=== PATIENT | male | born 1980 | race Caucasian/White ===

== ENCOUNTER 2018-09-27 20:08 | Emergency (ER) | payer MEDICAID, SELFPAY ==
[2018-09-27 20:10] VITALS: BP 129/87; PULSE 96; RESP 16; TEMP 37.1; O2SAT 100; BMI 23.6
--- NOTE | 2018-09-27 20:59 | ED.VISSUMM ---
- ER Visit Summary Date of Service: 09/27/18 Chief Complaint: Dizzy History of Present Illness: The patient is a 38 M who is had viral gastroenteritis symptoms for the past 6 days. He has been seen in urgent care a couple times. He took his first dose of Zofran last evening for some mild nausea. He states that about after 5 minutes he felt like he was on a carnival ride with everything moving and spinning. As the medication wore off today his symptoms resolved. Patient apparently went to urgent care today for a work note was sent to the emergency room. Physical Examination: Vital signs unremarkable. Patient's lying in bed no acute distress. Head neck examination reveals dry mucous membranes. TMs are clear bilaterally. Heart is regular rate and rhythm. Lung sounds are clear. Abdomen is soft and nontender. He has active bowel sounds throughout. Test Results: [] Emergency Department Course and Treatment: At this point patient's viral gastritis symptoms seem to be improving. It sounds like he had a vertigo reaction to Zofran that he took. Now that the medication is worn off his symptoms have completely resolved. Patient has been advised to stop taking Zofran. A work note is provided for today. Treatment Plan: [] Disposition: Discharge Impression: Medication side effect, resolved This note was generated with [email or web address] dictation software. It may contain incorrect words, spelling, and punctuation that were not noted in review of the chart prior to signing ED Disposition - Plan for ED Patient: Referrals: NOT,DEFINED [Primary Care Provider] -
--- NOTE | 2018-09-27 21:01 | ED.DEP ---
ED Disposition - Plan for ED Patient: Disposition: Home or Assisted Living Instructions: ED Drug React Allergic Referrals: Romel Grady MD [STAFF PHYSICIAN] - As Needed
== END 2018-09-27 21:11 | disposition home or self-care (01) ==
PROVIDERS: Emergency Provider Emergency Medicine
DX: R42 Dizziness and giddiness (principal); T45.0X5A Adverse effect of antiallergic and antiemetic drugs, initial encounter; Y92.9 Unspecified place or not applicable; A08.4 Viral intestinal infection, unspecified; Z72.0 Tobacco use
CPT/HCPCS: 99282

== ENCOUNTER 2019-05-02 22:45 | Emergency (ER) | payer MEDICAID, SELFPAY ==
[2018-12-25 15:15] VITALS: BMI 23.6
[2019-05-02 22:46] VITALS: BP 137/86; PULSE 79; RESP 14; TEMP 36.8; O2SAT 99; BMI 26.3
--- NOTE | 2019-05-02 23:38 | ED.DCSUM_ITS ---
- ER Visit Summary Date of Service: 05/02/19 Chief Complaint: Sick History of Present Illness: The patient is a 39 M who has been sick for several days. His family members have similar symptoms. He has been having fevers, dizziness, headache, nausea. He went to urgent care 2 days ago for his symptoms. He was having an earache at that time. He was prescribed antibiotics. He stopped taking them because they upset his stomach. He continues to have some nausea but no other GI symptoms. He continues to have fevers but is not taking Tylenol or Motrin because of the nausea. He has a headache and feels lightheaded. He attributes this to exhaustion. Physical Examination: Afebrile and vital signs unremarkable. Patient alert and oriented. No acute distress. HEENT exam unremarkable. Neck shows good range of motion, nontender. Heart regular rate and rhythm. Lungs clear in all hall. Skin appears unremarkable. Test Results: None indicated Emergency Department Course and Treatment: Patient has symptoms of an upper respiratory infection. His exam is reassuring. His family members have similar symptoms that also sound viral. Patient will need help with symptom control. He was treated with Zofran and Tylenol. He will be given a prescription for Zofran. Stay hydrated. Use Motrin and/or Tylenol as needed for fevers. Return for any new or worsening issues. Treatment Plan: As above Disposition: Discharge Impression: 1. Upper respiratory infection This note was generated with [employer] dictation software. It may contain incorrect words, spelling, and punctuation that were not noted in review of the chart prior to signing ED Disposition - Plan for ED Patient: Referrals: Care Physician,No Primary [Primary Care Provider] -
--- NOTE | 2019-05-02 23:40 | ED.DEP ---
ED Disposition - Plan for ED Patient: Instructions: BRONCHITIS, No Antibiotic (Adult) Prescriptions: Ondansetron [Zofran Odt] 4 mg PO Q8H PRN PRN #10 tab PRN Reason: Nausea Prescription Printed Referrals: Karmen Anne [NON-STAFF] -
[2019-05-02] MEDS: Ondansetron ODT 4 MG Tablet PO (23:45)
[2019-05-02] MEDS: Acetaminophen 500 MG Tablet 1000 MG PO (23:45)
[2019-05-02 23:58] VITALS: BP 130/60; PULSE 71; RESP 16; O2SAT 96
== END 2019-05-02 23:59 | disposition home or self-care (01) ==
LOC: ED 23:46
PROVIDERS: Emergency Provider Emergency Medicine; Referring Provider Nurse Practitioner Family
DX: J06.9 Acute upper respiratory infection, unspecified (principal); K21.9 Gastro-esophageal reflux disease without esophagitis; Z72.0 Tobacco use
CPT/HCPCS: 99283

== ENCOUNTER → 2020-02-08 | Outpatient (CLI) | payer MEDICAID, SELFPAY ==
--- NOTE | 2020-02-08 15:43 | RAD_ITS ---
STUDY: X-RAY - LUMBAR SPINE REASON FOR EXAM: Male, 39 years old. LBP, HIP PAIN TECHNIQUE: 3 view(s) of the lumbar spine were obtained. COMPARISON: None FINDINGS: Normal lumbar lordosis. There is no substantial scoliosis. There is a normal alignment of the vertebrae. Normal vertebral bodies and endplates. Normal disc space heights. There is no demonstrated fracture. There is no demonstrated spondylolysis of the pars interarticulares. The soft tissue structures are unremarkable. RAD/Lumbar Spine 2 or 3 Views IMPRESSION: Normal x-ray examination of the lumbar spine. Electronically Signed: Dani Banda MD at 16:07 EDT , Service support ,
--- NOTE | 2020-02-08 15:43 | RAD_ITS ---
STUDY: X-RAY - PELVIS AND BILATERAL HIPS REASON FOR EXAM: Male, 39 years old. BILATERAL HIP PAIN TECHNIQUE: AP view of the pelvis.? 2 views of the right hip, and 2 views of the left hip were obtained. COMPARISON: None. FINDINGS: There is a non-specific bowel gas pattern. Normal visualized soft tissue structures. Normal bilateral iliac wings, sacroiliac joints and visualized sacrum. Normal bilateral superior and inferior pubic rami. Normal pubic symphysis. Normal bilateral ischial tuberosities. Normal visualized right femoral head. Normal right acetabulum. Normal right hip joint. Normal visualized left femoral head. Normal left acetabulum. Normal left hip joint. RAD/Hips B/L min 2 views w/ Pelvis IMPRESSION: Normal x-ray examination of the pelvis and bilateral hips. Electronically Signed: Dani Banda MD at 16:08 EDT , Service support ,
== END | disposition home or self-care (01) ==
LOC: HPRAD 15:39
PROVIDERS: Referring Provider Anesthesiology Pain Medicine; Visit Provider Anesthesiology Pain Medicine
DX: M54.5 Low back pain (principal); M25.551 Pain in right hip; M25.552 Pain in left hip
CPT/HCPCS: 72100; 73521

== ENCOUNTER 2021-02-25 16:44 | Emergency (ER) | payer MEDICAID, SELFPAY ==
[2021-02-25 16:45] VITALS: BP 134/92; PULSE 74; RESP 16; TEMP 36.6; O2SAT 100; BMI 27.2
--- NOTE | 2021-02-25 16:55 | EX.ED.DYSGE1 ---
HPI History of Present Illness Chief Complaint: Other, Pain/Inj Informant: patient Onset/Context/Timing Onset: Days (3) Context: Gradual Onset Timing: Continuous Quality: sore swollen area Location: base of R neck Current Severity: Moderate Maximum Severity: Moderate Worsened by: palpation Relieved by: nothing Associated Symptoms Associated Symptoms: draining pus Narrative Narrative: Patient is concerned that he has a brown recluse spider bite. He never saw a spider, but states he was working outdoors, trimming branches from a tree and he started having discomfort, it was gradual, it later became worse and developed into what appears to be an abscess. He states he had a brown recluse spider bite in the past. He denies any systemic symptoms. [facility] Medical History (Updated 02/25/21 @ 17:[address] Edwin Pérez MD) Acid reflux Depression with anxiety History of back problems Home Medications sulfamethoxazole-trimethoprim 1 tab PO BID #20 tablet 02/25/21 [Rx Last Taken Unknown] Allergy/AdvReac Type Severity Reaction Status Date / Time No Known Allergies Allergy Verified 02/25/21 16:48 Family History (System 01/29/20 @ 14:14 by Nathaniel Silverio) Aunt Breast cancer Surgical History (System 01/29/20 @ 14:14 by Nathaniel Silverio) History of tonsillectomy and adenoidectomy history ORIF jaw Social History Smoking Status: Current every day smoker tobacco type: cigarettes alcohol intake: current substance use type: does not use ROS ROS ED Constitutional Constitutional ED: Denies chills or fever(s) Eyes Eyes: Denies change in vision or diplopia ENT ENT ED: Denies rhinorrhea or sore throat Cardiovascular Cardiovascular: Denies chest pain or palpitations Respiratory/Chest Respiratory/Chest: Denies cough or dyspnea Gastrointestinal Gastrointestinal: Denies abdominal pain, diarrhea, nausea or vomiting Genitourinary Genitourinary ED: Denies dysuria or hematuria Musculoskeletal Musculoskeletal: Reports as per HPI and neck pain; Denies back pain Integumentary Reports as per HPI and abscess; Denies rash Neurologic Neurologic: Denies headache(s), paresthesias or weakness Psychiatric Psychiatric: Denies anxiety or suicidal thoughts EXAM Physical Exam Const Vital Signs: 02/25/21 16:45 02/25/21 16:53 Temperature 97.9 F Temperature Source Temporal Pulse Rate 74 Respiratory Rate 16 Respiratory Effort Normal Respiratory Pattern Normal Blood Pressure 134/92 H Blood Pressure Mean 106 Pulse Ox 100 Oxygen Delivery Method Room Air Positive well nourished and well developed General Appearance ED: well developed and NAD HEENT Reports moist mucous membranes normocephalic and atraumatic Eyes PERRL and EOMs intact bilaterally Neck full ROM and supple Neck Narrative: Local tenderness at abscess at the base of the right neck, it is caudal to the clavicle but anterior more on top of the shoulder near the neck Resp normal respiratory effort and clear to auscultation bilaterally Extremity normal to inspection General Extremety ED: Negative for edema, pulses abnormal or tenderness General Extremity: Negative for edema or pulses abnormal Neuro oriented x3, CN's II-XII intact bilaterally and no sensory deficits noted Sensorium / Orientation: awake and alert Motor Exam: strength 5/5 throughout Skin Skin Narrative: 2 cm ovoid abscess actively draining small amount of purulent material without any black necrotic tissue at the base of the neck on the right side, caudal to the clavicle. There is some mild tenderness around the clavicle and mildly tender mobile rubbery nodular area that may be lymphadenopathy without overlying skin abnormality or palpable cord/tunnel. MDM MDM MDM Narrative Medical decision making narrative: I think this infection is needing incision and drainage along with antibiotics mostly to cover MRSA. There is nothing here to indicate that this is definitely a brown recluse and the patient never saw a spider. Even if it was right now I would do the same management. There is nothing that needs to be debrided here, just opened and cleansed and antibiotics to enable healing by secondary intent which I discussed with the patient. He was amenable to this. Procedures Other Procedures Procedure(s): Simple incision and drainage abscess: Isopropanol prepped and scrubbed with chlorhexidine, locally anesthetized 4 cc plain 1% lidocaine, incised with a #11 blade centrally, small amount of purulent material drained, deloculated with small hemostats, dressed with bacitracin. Tolerated well no complications. Discharge Plan Triage Chief Complaint: Other, Pain/Inj ED Provider: Edwin Pérez Dx/Rx/DC Orders Clinical Impression: Abscess, neck Instructions: ED Abscess Incision And Drainage Prescriptions: New sulfamethoxazole-trimethoprim [sulfamethoxazole-trimethoprim] 1 TABLET tablet 1 tab PO BID Qty: 20 RF: 0 Primary Care Provider: Everton Ruff [facility]errals: [facility]Karmen Anne [NON-STAFF] - Disposition Disposition: Home, Self Care
[2021-02-25] MEDS: Lidocaine 1% (20 ml mdv) 20 ML Vial INFILT (17:44)
[2021-02-25] MEDS: Smz/Tmp Ds Tablet 1 TABLET PO (17:44)
== END 2021-02-25 18:44 | disposition home or self-care (01) ==
PROVIDERS: Emergency Provider Emergency Medicine; PCP Family Medicine
DX: L02.11 Cutaneous abscess of neck (principal); F17.210 Nicotine dependence, cigarettes, uncomplicated
CPT/HCPCS: 10060; 99283

== ENCOUNTER → 2021-11-11 | Outpatient (CLI) | payer MEDICAID, SELFPAY ==
[2021-11-11 12:25] LABS: Absolute Lymphocyte Count 2.14 X10^3/uL (0.83-4.51); Basophil# 0.03 X10^3/uL; Basophil% 0.3 % (0-1); Eosinophil# 0.13 X10^3/uL; Eosinophils% 1.5 % (0-5); Hematocrit 46.7 % (40-54); Hemoglobin 15.4 g/dL (13.0-16.5); Lymphocyte # 2.14 X10^3/ul (0.83-4.51); Lymphocyte % 23.9 % (19-41); Mean Corpuscular Hgb 32.1 pg (27.0-32.0); Mean Corpuscular Volume 97.3 fL (80-94); Mean Platelet Vol. 10.6 fl (6.2-12.0); Monocyte# 0.62 X10^3/uL; Monocyte% 6.9 % (0-10); NRBC Flagged by Analyzer 0 % (0-5); Neutrophil % 67.1 % (47-70); Platelet Count 234 K/mm3 (150-450); RBC Distribution Width CV 12.3 % (11.6-14.6); RBC Distribution Width SD 44.8 fl (35.1-43.9)
[2021-11-11 12:53] LABS: AST(SGOT) 12 U/L (15-37); Alanine Aminotransfer ALT/SGPT 20 U/L (16-61); Albumin, Serum 3.8 g/dL (3.2-5.0); Alkaline Phosphatase 66 U/L (45-117); Anion Gap 5 (5-15); BUN 7 mg/dL (7-18); BUN/Creat Ratio 9.1 RATIO (10-20); Chloride 107 mmol/L (98-107); Cholesterol 209 mg/dL (200); Creatinine, Serum 0.77 mg/dL (0.70-1.30); EST Glomerular Filtration Rate 117 mL/min (>60); Est Glom Filt Rate - Afr Amer 142 mL/min (>60); Free T3 2.9 pg/mL (2.18-3.98); Globulin 3.8 g/dL (2.2-4.2); Glucose 79 mg/dL (74-106); High Density Lipoprotein 38 mg/dL; Potassium 4.4 mmol/L (3.5-5.1); Protein, Total 7.6 g/dL (6.4-8.2); Sodium Level 141 mmol/L (136-145); T4 Free Direct 0.84 ng/dL (0.76-1.46); Thyroid Stim Hormone (TSH) 1.68 uIU/mL (0.358-3.74); Triglycerides 141 mg/dL; Very Low Density Lipoprotein 28 mg/dL (5-40)
[2021-11-11 12:56] LABS: Vitamin D,25 Hydroxy 9.3 ng/mL
[2021-11-11 13:07] LABS: Hemoglobin A1c 5.1 % (3.8-5.6)
== END | disposition home or self-care (01) ==
LOC: BIMLAB 10:58
PROVIDERS: PCP Internal Medicine; Referring Provider Internal Medicine; Visit Provider Internal Medicine
DX: Z00.00 Encounter for general adult medical examination without abnormal findings (principal); E55.9 Vitamin D deficiency, unspecified; F41.9 Anxiety disorder, unspecified; Z13.220 Encounter for screening for lipoid disorders; Z13.1 Encounter for screening for diabetes mellitus; Z12.5 Encounter for screening for malignant neoplasm of prostate
CPT/HCPCS: 84153; 36415; 80053; 80061; 82306; 83036; 84439; 84443; 84481; 85025; G0103

== ENCOUNTER 2021-12-07 14:03 | Emergency (ER) | payer MEDICAID, SELFPAY ==
[2021-12-07 14:21] VITALS: BP 149/95; PULSE 72; RESP 16; TEMP 36.8; O2SAT 98; BMI 25.8
[2021-12-07 14:39] LABS: Absolute Lymphocyte Count 2.56 X10^3/uL (0.83-4.51); Absolute Neutrophil Count 8.1 X10^3/uL (2.0-7.7); Basophil# 0.04 X10^3/uL; Basophil% 0.3 % (0-1); Eosinophil# 0.05 X10^3/uL; Eosinophils% 0.4 % (0-5); Hemoglobin 17.2 g/dL (13.0-16.5); Lymphocyte # 2.56 X10^3/ul (0.83-4.51); Lymphocyte % 21.9 % (19-41); Mean Corp Hgb Conc 34.4 g/dL (32-36); Mean Corpuscular Hgb 31.8 pg (27.0-32.0); Mean Corpuscular Volume 92.4 fL (80-94); Mean Platelet Vol. 10.1 fl (6.2-12.0); Monocyte# 0.91 X10^3/uL; Monocyte% 7.8 % (0-10); NRBC Flagged by Analyzer 0 % (0-5); Neutrophil # 8.09 X10^3/uL (2.7-7.7); Neutrophil % 69.1 % (47-70); Platelet Count 310 K/mm3 (150-450); RBC Distribution Width SD 41.3 fl (35.1-43.9); Red Blood Count 5.41 M/mm3 (4.6-6.2); White Blood Count 11.7 K/mm3 (4.4-11.0)
[2021-12-07 14:51] LABS: Anion Gap 11 (5-15); BUN 15 mg/dL (7-18); BUN/Creat Ratio 15.7 RATIO (10-20); Calcium,Total 9.9 mg/dL (8.5-10.1); Chloride 105 mmol/L (98-107); Creatinine, Serum 0.96 mg/dL (0.70-1.30); EST Glomerular Filtration Rate 91 mL/min (>60); Est Glom Filt Rate - Afr Amer 111 mL/min (>60); Glucose 109 mg/dL (74-106); Potassium 3.5 mmol/L (3.5-5.1); Sodium Level 138 mmol/L (136-145)
--- NOTE | 2021-12-07 15:16 | EX.ED.DYSGE1 ---
HPI History of Present Illness Chief Complaint: Nausea/Vomiting Narrative Narrative: Patient presents with nausea vomiting diarrhea for the last 5 days. It started with diarrhea, loose and watery stools and it improved, the diarrhea has been almost gone for the past 2 days. He continues to have nausea, some vomiting but not recently. He feels quite lightheaded. He has no vertiginous symptoms. Does not feel off balance. Does not have a headache. No sick contacts. He is denying any abdominal pain. He did say that when the people in his household did put soap and some of the food there were eating, he also had steroid shots recently although he has had them in the past and had no adverse reactions to them. No fevers or chills. No back pain or tearing sensation. No urinary symptoms. No chest pain or shortness of breath. PFSH PFSH Medical History Acid reflux Bone fracture Depression with anxiety Headache, migraine History of back problems Home Medications escitalopram oxalate 10 mg tablet 10 mg PO DAILY #30 tab 11/11/21 [Rx Last Taken Unknown] ondansetron 4 mg PO Q8H #10 tab 12/07/21 [Rx Last Taken Unknown] Allergy/AdvReac Type Severity Reaction Status Date / Time bee venom protein (honey bee) Allergy Anaphylaxis Verified 12/07/21 14:28 Family History Aunt Breast cancer Father Alcoholism Mother Arthritis Surgical History History of tonsillectomy and adenoidectomy history ORIF jaw Social History Smoking Status: Current every day smoker tobacco type: cigarettes Tobacco: How many years used: 24 alcohol intake: current alcohol intake frequency: holidays/special occasions only substance use type: does not use what type of physical activity do you participate in: walking ROS ROS ED ROS Narrative Past medical history: Reviewed Medications: Reviewed Social history: Noncontributory Review of systems: All systems negative except as indicated General: No fever. Lightheadedness and as in HPI Eyes: No visual changes ENT: No upper airway congestion, normal voice Neck: No neck pain Cardiovascular: No chest pain. No palpitations Respiratory: No shortness of breath or cough Gastrointestinal: As in HPI Genitourinary: No dysuria Musculoskeletal: Denies myalgias no difficulty with ambulation Skin: No rash Neurological: No memory loss, confusion or any focal weakness Psych: No recent behavioral changes Hematologic: No easy bleeding or easy bruising EXAM Physical Exam Narrative Exam Narrative: Physical exam General: Well nourished, Well developed, appears somewhat uncomfortable Head: Normocephalic, Atraumatic Eyes: Conjunctiva not pale ENT: Slightly dry mucous membranes Neck: Supple, Nontender, No lymphadenopathy Cardiovascular: Regular rate, Regular rhythm Respiratory: No distress, CTA bilaterally Abdomen: Soft, Nontender, Nondistended Back: Nontender, Normal Inspection. Negative for: CVA tenderness Extremities: Tenderness over both hips, no signs of infection in the steroid shot region. Skin: Normal color, No rash Neurological: Alert, Normal Strength, Normal Sensation Psychological: Normal affect Const Vital Signs: 12/07/21 14:21 12/07/21 15:17 Temperature 98.2 F Temperature Source Temporal Pulse Rate 72 Respiratory Rate 16 Blood Pressure 149/95 H 135/91 H Blood Pressure Mean 113 105 Pulse Ox 98 Oxygen Delivery Method Room Air MDM MDM MDM Narrative Medical decision making narrative: Patient significantly improved after Zofran and IV fluids,, he no longer feels lightheaded, he has no nausea or vomiting. His lipase was slightly elevated but he has no abdominal pain, he does not drink alcohol only maybe 2 or 3 times a year, he has no right upper quadrant pain I reevaluated his abdomen he has no pain, he has a negative Jacobson's he has no right upper quadrant pain I do not believe any to do a work-up for this. I reviewed his medications I do not see any medications that could cause pancreatitis, regardless he is improved he has no abdominal pain I think he can be discharged safely home if anything changes he is to return. I told him to follow-up with his PCP in the next week to recheck his lipase to make sure it is trending down. If anything worsens he is to return he understands this. Lab Data Labs: Laboratory Results - last 24 hr 12/07/21 12/07/21 12/07/21 14:30 14:30 14:30 WBC 11.7 H RBC 5.41 Hgb 17.2 H Hct 50.0 MCV 92.4 MCH 31.8 MCHC 34.4 RDW Std Deviation 41.3 RDW Coeff of Alen 12.0 Plt Count 310 MPV 10.1 Immature Gran % (Auto) 0.500 Neut % (Auto) 69.1 Lymph % (Auto) 21.9 [place] % (Auto) 7.8 Eos % (Auto) 0.4 Baso % (Auto) 0.3 Absolute Neuts (auto) 8.1 H Absolute Lymphs (auto) 2.56 Nucleated RBC % 0 Sodium 138 Potassium 3.5 Chloride 105 Carbon Dioxide 22.0 Anion Gap 11 BUN 15 Creatinine 0.96 Estim Creat Clear Calc 103.50 Est GFR (MDRD) Af Amer 111 Est GFR (MDRD) Non-Af 91 BUN/Creatinine Ratio 15.7 Glucose 109 H Calcium 9.9 Lipase 1086 H Discharge Plan Triage Chief Complaint: Nausea/Vomiting ED Provider: Deshaun Tang Dx/Rx/DC Orders Clinical Impression: Nausea & vomiting, Elevated lipase Instructions: Nausea Vomit Control Prescriptions: New ondansetron 4 mg tablet,disintegrating 4 mg PO Q8H Qty: 10 RF: 0 No Action escitalopram oxalate 10 mg tablet 10 mg PO DAILY Qty: 30 RF: 3 Primary Care Provider: Pita Knight Referrals: Pita Knight MD [Primary Care Provider] - 3-5 Days Activity Restrictions/Additional Instructions: Your lipase was elevated today, make sure you follow-up with your doctor to repeat blood work. If anything worsens or to return. Disposition Disposition: Home, Self Care
[2021-12-07 15:17] VITALS: BP 135/91
[2021-12-07] MEDS: Ondansetron 4 MG/2 ML Vial IV (15:23)
[2021-12-07] MEDS: 0.9% Normal Saline 1,000 ML 1000 ML IV (15:23)
[2021-12-07 15:59] LABS: Lipase 1086 U/L (73-393)
== END 2021-12-07 16:48 | disposition home or self-care (01) ==
PROVIDERS: Emergency Provider Emergency Medicine; PCP Internal Medicine; Visit Provider Emergency Medicine
DX: R11.2 Nausea with vomiting, unspecified (principal); F17.210 Nicotine dependence, cigarettes, uncomplicated; R74.8 Abnormal levels of other serum enzymes; K21.9 Gastro-esophageal reflux disease without esophagitis; F41.9 Anxiety disorder, unspecified; F32.A Depression, unspecified; Z79.899 Other long term (current) drug therapy
CPT/HCPCS: 96361; 96374; 80048; 83690; 85025; 87811; 99285; J7030; J2405

== ENCOUNTER 2021-12-08 18:08 | Emergency (ER) | payer MEDICAID, SELFPAY ==
[2021-12-08 18:09] VITALS: BP 166/93; PULSE 62; RESP 20; TEMP 36.6; O2SAT 100; BMI 23.2
--- NOTE | 2021-12-08 18:30 | CT_ITS ---
EXAM: CT ANGIOGRAPHY HEAD AND NECK WITH INTRAVENOUS CONTRAST CLINICAL INDICATION: pain/dissection TECHNIQUE: [place]/head and neck CT angiography protocol performed with intravenous contrast. This CT exam was performed using one or more of the following dose reduction techniques: automated exposure control, adjustment of the mA and/or kV according to patient size, and/or use of iterative reconstruction technique. This report was created using [employer] report generation technology. MIP reconstructed images were created and reviewed. CONTRAST: IV 100mL Isovue-370 RADIATION DOSE: CTDIvol = 32.18 mGy, DLP = 1538.35 mGy-cm COMPARISON: None. FINDINGS: HEAD: RIGHT ANTERIOR CEREBRAL ARTERY: Unremarkable. No significant stenosis at the visualized segments. Anterior communicating artery is present. No aneurysm. RIGHT MIDDLE CEREBRAL ARTERY: Unremarkable. No significant stenosis at the visualized segments. No aneurysm. RIGHT POSTERIOR CEREBRAL ARTERY: Unremarkable. No occlusion or significant stenosis. No aneurysm. RIGHT INTRACRANIAL INTERNAL CAROTID ARTERY: Unremarkable. No significant stenosis. No dissection or occlusion. RIGHT INTRACRANIAL VERTEBRAL ARTERY: Unremarkable. No significant stenosis. No dissection or occlusion. LEFT ANTERIOR CEREBRAL ARTERY: Unremarkable. No significant stenosis at the visualized segments. No aneurysm. LEFT MIDDLE CEREBRAL ARTERY: Unremarkable. No significant stenosis at the visualized segments. No aneurysm. LEFT POSTERIOR CEREBRAL ARTERY: Unremarkable. No occlusion or significant stenosis. No aneurysm. LEFT INTRACRANIAL INTERNAL CAROTID ARTERY: Unremarkable. No significant stenosis. No dissection or occlusion. LEFT INTRACRANIAL VERTEBRAL ARTERY: Unremarkable. No significant stenosis. No dissection or occlusion. BASILAR ARTERY: Unremarkable. No significant stenosis. No aneurysm. OTHER VASCULATURE: There are no acute findings of the right and left internal carotid artery. ALL ABOVE CRITERIA BY NASCET. No vascular malformation. NECK: RIGHT COMMON CAROTID ARTERY: Unremarkable. No significant stenosis. No dissection or occlusion. RIGHT EXTRACRANIAL INTERNAL CAROTID ARTERY: Unremarkable. No significant stenosis. No dissection or occlusion. RIGHT EXTERNAL CAROTID ARTERY: Unremarkable. No occlusion. RIGHT EXTRACRANIAL VERTEBRAL ARTERY: Unremarkable. No significant stenosis. No dissection or occlusion. LEFT COMMON CAROTID ARTERY: Unremarkable. No significant stenosis. No dissection or occlusion. LEFT EXTRACRANIAL INTERNAL CAROTID ARTERY: Unremarkable. No significant stenosis. No dissection or occlusion. LEFT EXTERNAL CAROTID ARTERY: Unremarkable. No occlusion. LEFT EXTRACRANIAL VERTEBRAL ARTERY: Unremarkable. No significant stenosis. No dissection or occlusion. GREAT VESSELS OF AORTIC ARCH: Unremarkable as visualized. Normal anatomy, patent. LUNG APICES: Unremarkable as visualized. HEAD and NECK: BONES/JOINTS: Unremarkable. No discrete lytic or blastic abnormalities. SOFT TISSUES: Unremarkable. OTHER FINDINGS: There are no acute findings of the [place] without a demonstrated aneurysm or hemodynamically significant stenosis. ALL ABOVE CRITERIA BY NASCET. CAROTID STENOSIS REFERENCE USING NASCET CRITERIA: % ICA stenosis = (1 - narrowest ICA diameter/diameter of distal cervical ICA) x 100. Mild - <50% stenosis. Moderate - 50-69% stenosis. Severe - 70-94% stenosis. Near occlusion - 95-99% stenosis. Occluded - 100% stenosis. CT/CTA Head AND Neck W/ Contrast IMPRESSION: 1. There are no acute findings of the [place] without a demonstrated aneurysm or hemodynamically significant stenosis. ALL ABOVE CRITERIA BY NASCET. 2. There are no acute findings of the right and left internal carotid artery. ALL ABOVE CRITERIA BY NASCET. Electronically Signed: Mike Wright MD at 19:59 EDT ,
--- NOTE | 2021-12-08 18:32 | EDS_ITS ---
HPI History of Present Illness Chief Complaint: Other, Pain/Inj Informant: patient and spouse/S.O. Narrative Narrative: 41-year-old male presenting to the emergency department via EMS with a chief complaint of neck pain. Patient states he does not know how long he has been sick but his significant other said that he started having diarrhea with blood in it last Tuesday. By the weekend and felt better but then he started with nausea and vomiting. He was seen in the emergency room yesterday had a lipase level of 1000 and a white blood cell count of 11. He was discharged home. He states that today he felt poorly has spent all day in bed. He went to have a bowel movement and he tells me that he was not straining and also and he felt what was like fonder in his neck. He states that he felt a pop pop pop. He then felt hot water being poured over his head. Nausea vomiting continuous. His significant other tells me that for the past 2 years his bones have been shifting rapidly. She cannot really explain more than that. He is in pain management. He has had subjective fever but they have not actually taken it. PFSH PFSH Medical History Acid reflux Bone fracture Depression with anxiety Headache, migraine History of back problems Home Medications escitalopram oxalate 10 mg tablet 10 mg PO DAILY #30 tab 11/11/21 [Rx Last Taken Unknown] ondansetron 4 mg PO Q8H #10 tab 12/07/21 [Rx Last Taken Unknown] meloxicam 7.5 mg PO 12/08/21 [History Last Taken Unknown] ondansetron 4 mg PO Q6H PRN PRN #20 tab 12/08/21 [Rx Last Taken Unknown] promethazine 25 mg PO Q6H PRN PRN #15 tablet 12/08/21 [Rx Last Taken Unknown] Allergy/AdvReac Type Severity Reaction Status Date / Time bee venom protein (honey bee) Allergy Anaphylaxis Verified 12/07/21 14:28 Family History Aunt Breast cancer Father Alcoholism Mother Arthritis Surgical History History of tonsillectomy and adenoidectomy history ORIF jaw Social History Smoking Status: Current every day smoker tobacco type: cigarettes Tobacco: How many years used: 24 alcohol intake: current alcohol intake frequency: holidays/special occasions only substance use type: does not use what type of physical activity do you participate in: walking ROS ROS ED Constitutional Constitutional ED: Reports fever(s), subjective and sweats; Denies chills or weight loss Eyes Eyes: Denies change in vision or diplopia ENT ENT ED: Denies ear pain, rhinorrhea or sore throat Cardiovascular Cardiovascular: Denies chest pain, orthopnea, palpitations or racing heartbeat Respiratory/Chest Respiratory/Chest: Denies cough, dyspnea or orthopnea Gastrointestinal Gastrointestinal: Reports diarrhea, nausea and vomiting; Denies abdominal pain Genitourinary Genitourinary ED: Denies dysuria, hematuria or urinary frequency Musculoskeletal Musculoskeletal: Reports arthralgias, back pain and neck pain; Denies myalgias Integumentary Denies abscess or rash Neurologic Neurologic: Reports headache(s); Denies weakness Psychiatric Psychiatric: Denies anxiety, depression, suicidal ideation or suicidal thoughts Endocrine Endocrinology: Denies polydipsia, polyphagia or polyuria Allergic/Immunologic Allergic/Immunologic ED: Denies mouth swelling, tongue swelling or urticaria EXAM Physical Exam Narrative Exam Narrative: Patient is laying on his right side holding an emesis basin. Const Vital Signs: 12/08/21 18:09 12/08/21 18:12 12/08/21 19:40 Temperature 97.8 F Temperature Source Temporal Pulse Rate 62 55 L Respiratory Rate 20 H 18 Respiratory Effort Normal Respiratory Pattern Normal Blood Pressure 166/93 H 136/92 H Blood Pressure Mean 117 106 Pulse Ox 100 99 Oxygen Delivery Method Room Air Room Air Positive well nourished and well developed General Appearance ED: well developed HEENT Reports normocephalic, head/scalp atraumatic and moist mucous membranes Negative for trauma Eyes PERRL and EOMs intact bilaterally Neck no lymphadenopathy, supple and no JVD Neck Narrative: No carotid bruit. Strong carotid upstroke no JVD. Resp normal respiratory effort and clear to auscultation bilaterally Cardio regular rate, regular rhythm and no murmurs GI normal to inspection, nondistended, normoactive bowel sounds and non-tender Palpation: soft Back/Spine no CVA tenderness and normal ROM Extremity normal to inspection General Extremety ED: Negative for edema General Extremity: Negative for edema Neuro oriented x3 and CN's II-XII intact bilaterally Sensorium / Orientation: alert Motor Exam: strength 5/5 throughout Psych Mood & Affect: Negative for depressed or tearful Skin no rashes or lesions noted and no wounds MDM MDM MDM Narrative Medical decision making narrative: White count nonspecifically elevated at 12. Differential normal. Basic blood work showed a lipase of 163 CMP otherwise looked pretty normal. CTA of the head and neck was negative for dissection or stenosis and no hemorrhage. Patient received IV fluids morphine Zofran and later a dose of Phenergan. I will write for Zofran and Phenergan at home. He is to follow-up with his doctors as scheduled return if worsening or concerns Lab Data Attestation: I reviewed the patient's lab results. Labs: Laboratory Results - last 24 hr 12/08/21 12/08/21 18:40 18:40 WBC 12.0 H RBC 5.18 Hgb 16.6 H Hct 47.0 MCV 90.7 MCH 32.0 MCHC 35.3 RDW Std Deviation 39.8 RDW Coeff of Alen 11.9 Plt Count 286 MPV 9.9 Immature Gran % (Auto) 0.300 Neut % (Auto) 68.8 Lymph % (Auto) 22.6 [place] % (Auto) 7.0 Eos % (Auto) 0.8 Baso % (Auto) 0.5 Absolute Neuts (auto) 8.3 H Absolute Lymphs (auto) 2.71 Nucleated RBC % 0 Sodium 137 Potassium 3.7 Chloride 104 Carbon Dioxide 24.0 Anion Gap 9 BUN 16 Creatinine 0.90 Estim Creat Clear Calc 110.40 Est GFR (MDRD) Af Amer 119 Est GFR (MDRD) Non-Af 98 BUN/Creatinine Ratio 17.8 Glucose 108 H Calcium 9.7 Total Bilirubin 1.00 Direct Bilirubin 0.18 AST 12 L ALT 20 Alkaline Phosphatase 71 Total Protein 7.7 Albumin 4.0 Globulin 3.7 Lipase 163 Radiography Diagnostic Testing: Clinical Impression(s) from Imaging Studies Head/Neck CTA 12/08/21 18:30 IMPRESSION: 1. There are no acute findings of the [place] of [place] without a demonstrated aneurysm or hemodynamically significant stenosis. ALL ABOVE CRITERIA BY NASCET. 2. There are no acute findings of the right and left internal carotid artery. ALL ABOVE CRITERIA BY NASCET. Electronically Signed: Mike Wright MD at 19:59 EDT , Discharge Plan Triage Chief Complaint: Other, Pain/Inj ED Provider: Marcel Medina Dx/Rx/DC Orders Clinical Impression: Acute neck pain, Paresthesia, Vomiting Instructions: ED Pain, Acute, Uncertain Cause Prescriptions: New promethazine [promethazine] 25 MG tablet 25 mg PO Q6H PRN PRN (Reason: Nausea) Qty: 15 RF: 0 ondansetron [ondansetron] 4 MG tablet 4 mg PO Q6H PRN PRN (Reason: Nausea) Qty: 20 RF: 0 No Action escitalopram oxalate 10 mg tablet 10 mg PO DAILY Qty: 30 RF: 3 ondansetron 4 mg tablet,disintegrating 4 mg PO Q8H Qty: 10 RF: 0 meloxicam 7.5 mg tablet 7.5 mg PO RF: 0 Primary Care Provider: Pita Knight Referrals: Pita Knight MD [Primary Care Provider] - Keep Fer appointment
[2021-12-08] MEDS: Ondansetron 4 MG/2 ML Vial IV (18:55)
[2021-12-08] MEDS: 0.9% Normal Saline 1,000 ML 1000 ML IV (18:56)
[2021-12-08] MEDS: Morphine 4 MG/ML Syringe IV (18:56)
[2021-12-08 18:57] LABS: Absolute Lymphocyte Count 2.71 X10^3/uL (0.83-4.51); Absolute Neutrophil Count 8.3 X10^3/uL (2.0-7.7); Basophil# 0.06 X10^3/uL; Basophil% 0.5 % (0-1); Eosinophil# 0.09 X10^3/uL; Eosinophils% 0.8 % (0-5); Hemoglobin 16.6 g/dL (13.0-16.5); Lymphocyte # 2.71 X10^3/ul (0.83-4.51); Lymphocyte % 22.6 % (19-41); Mean Corp Hgb Conc 35.3 g/dL (32-36); Mean Corpuscular Volume 90.7 fL (80-94); Mean Platelet Vol. 9.9 fl (6.2-12.0); Monocyte# 0.84 X10^3/uL; NRBC Flagged by Analyzer 0 % (0-5); Neutrophil # 8.25 X10^3/uL (2.7-7.7); Neutrophil % 68.8 % (47-70); Platelet Count 286 K/mm3 (150-450); RBC Distribution Width CV 11.9 % (11.6-14.6); RBC Distribution Width SD 39.8 fl (35.1-43.9); Red Blood Count 5.18 M/mm3 (4.6-6.2)
[2021-12-08 19:14] LABS: AST(SGOT) 12 U/L (15-37); Alanine Aminotransfer ALT/SGPT 20 U/L (16-61); Alkaline Phosphatase 71 U/L (45-117); Anion Gap 9 (5-15); BUN 16 mg/dL (7-18); BUN/Creat Ratio 17.8 RATIO (10-20); Bilirubin, Direct 0.18 mg/dL (0.00-0.30); Calcium,Total 9.7 mg/dL (8.5-10.1); Chloride 104 mmol/L (98-107); EST Glomerular Filtration Rate 98 mL/min (>60); Est Glom Filt Rate - Afr Amer 119 mL/min (>60); Globulin 3.7 g/dL (2.2-4.2); Glucose 108 mg/dL (74-106); Lipase 163 U/L (73-393); Potassium 3.7 mmol/L (3.5-5.1); Protein, Total 7.7 g/dL (6.4-8.2); Sodium Level 137 mmol/L (136-145)
[2021-12-08 19:40] VITALS: BP 136/92; PULSE 55; RESP 18; O2SAT 99
[2021-12-08] MEDS: proMETHazine 25 MG Tablet PO (20:15)
== END 2021-12-08 20:20 | disposition home or self-care (01) ==
PROVIDERS: Emergency Provider Emergency Medicine; PCP Internal Medicine; Visit Provider Emergency Medicine
DX: M54.2 Cervicalgia (principal); R19.7 Diarrhea, unspecified; R11.2 Nausea with vomiting, unspecified; R20.2 Paresthesia of skin; F17.210 Nicotine dependence, cigarettes, uncomplicated; K21.9 Gastro-esophageal reflux disease without esophagitis; F41.9 Anxiety disorder, unspecified; F32.A Depression, unspecified; Z79.899 Other long term (current) drug therapy; G43.909 Migraine, unspecified, not intractable, without status migrainosus
CPT/HCPCS: 70496; 70498; 80048; 80076; 83690; 85025; 96361; 96374; 96375; 99285; J7030; Q9967; A4216; J2405

== ENCOUNTER 2022-08-06 18:24 | Emergency (ER) | payer MEDICAID, SELFPAY ==
[2022-08-06 18:25] VITALS: BP 156/98; PULSE 102; RESP 18; TEMP 36; O2SAT 97; BMI 25.7
[2022-08-06] MEDS: Ondansetron ODT 4 MG Tablet PO (20:17)
--- NOTE | 2022-08-06 20:44 | EDS_ITS ---
HPI History of Present Illness Chief Complaint: Cold Sx Informant: patient Narrative Narrative: Patient feels as though he has the flu. He states that about 2 weeks ago he started with some nasal congestion and nonproductive cough. This seemed to be getting better. But then the symptoms came back and he has had more congestion although the cough is not really worsening. He is not short of breath. He is not really coughing any sputum up or wheezing. He states the last 3 days he has had some nausea vomiting. He had some diarrhea a few days ago but that is better. No blood. He states his abdomen cramps but is not painful. He also has muscle aches and my bones ache feeling. No definite exposure that he knows of. He denies chronic medical conditions He is currently on no medicines as he is out of S-Citalopram Allergy to bee venom [facility] Medical History Acid reflux Bone fracture Depression with anxiety Headache, migraine History of back problems Home Medications escitalopram oxalate 10 mg tablet 10 mg PO DAILY #90 tabs 05/20/22 [Rx Last Taken Unknown] ondansetron 4 mg disintegrating tablet 4 mg PO Q8H PRN PRN Nausea #10 tabs 08/06/22 [Rx Last Taken Unknown] Allergy/AdvReac Type Severity Reaction Status Date / Time bee venom protein (honey bee) Allergy Anaphylaxis Verified 08/06/22 18:26 Family History Aunt Breast cancer Father Alcoholism Mother Arthritis Surgical History History of tonsillectomy and adenoidectomy history ORIF jaw Social History Smoking Status: Current every day smoker tobacco type: cigarettes Tobacco: How many years used: 24 alcohol intake: current alcohol intake frequency: holidays/special occasions only substance use type: does not use what type of physical activity do you participate in: walking ROS ROS ED Constitutional Constitutional ED: Reports subjective; Denies fever(s) Eyes Eyes: Denies blurry vision, change in vision or diplopia ENT ENT ED: Reports rhinorrhea; Denies ear pain or sore throat Cardiovascular Cardiovascular: Denies chest pain, palpitations or racing heartbeat Respiratory/Chest Respiratory/Chest: Reports cough; Denies dyspnea or sputum Gastrointestinal Gastrointestinal: Reports diarrhea, nausea and vomiting; Denies abdominal pain Genitourinary Genitourinary ED: Denies hematuria or urinary frequency Musculoskeletal Musculoskeletal: Reports arthralgias and myalgias Integumentary Denies rash Neurologic Neurologic: Denies headache(s) Psychiatric Psychiatric: Denies anxiety Endocrine Endocrinology: Denies polyuria Hematologic/Lymphatic Hematologic/Lymphatic: Denies easy bleeding or easy bruising Allergic/Immunologic Allergic/Immunologic ED: Denies urticaria EXAM Physical Exam Narrative Exam Narrative: Patient awake alert nontoxic. Pleasant. Carries on normal conversation. Can sit up easily without pain. HEENT shows no sign of trauma. There is some mild nasal congestion but no puru lent discharge. No sinus tenderness. Oropharynx is dry slightly but no exudate or significant erythema Eyes show no jaundice/icterus Neck shows no meningismus stridor or JVD Lungs are clear bilaterally even with good deep breaths. No pain with a deep breath. Heart is regular with a rate of about 90-100. This is likely a little tachycardic because of decreased p.o. intake. Abdomen has normal bowel sounds soft nondistended. There is no focal tenderness. no CVA or suprapubic tenderness. Extremities show no rash or edema Patient is awake alert neurologically appropriate Const Vital Signs: 08/06/22 18:25 08/06/22 19:34 Temperature 96.8 F L Temperature Source Temporal Pulse Rate 102 H Respiratory Rate 18 Respiratory Pattern Normal Blood Pressure 156/98 H Blood Pressure Mean 117 Pulse Ox 97 Oxygen Delivery Method Room Air MDM [facility] MDM Narrative Medical decision making narrative: I discussed options with the patient. His influenza and COVID are negative. I explained that the influenza test can mix a quite large percentage of actual positives. He may still have influenza. But he is multiple days into this and there is no indication for medical treatment for the influenza although we can help with the nausea. We discussed some options. He really does not want IV, blood work or imaging. He states he thinks he would do well just with Zofran. It sounds like he has used this before. For this reason, he is given a Zofran ODT. Patient will be rechecked. Patient was rechecked. He states nausea is completely gone. He is actually hungry. He drank some water. He would like to go home at this time. I think that is reasonable. I will write for some Zofran. We discussed reasons to return. Discharge Plan Triage Chief Complaint: Cold Sx ED Provider: Aakash Edwards Dx/Rx/DC Orders Clinical Impression: Acute viral syndrome, Nausea & vomiting Instructions: ED Viral Syndrome (Adult), ED Vomiting (Adult) Prescriptions: New ondansetron [ondansetron] 4 mg tablet,disintegrating 4 mg PO Q8H PRN PRN (Reason: Nausea) Qty: 10 0RF No Action escitalopram oxalate 10 mg tablet 10 mg PO DAILY Qty: 90 3RF Primary Care Provider: Pita Knight Referrals: Pita Knight MD [Primary Care Provider] - 3-5 Days if not improving Disposition Disposition: Home, Self Care
[2022-08-06 22:34] VITALS: BP 134/75; PULSE 78; RESP 18; O2SAT 98
== END 2022-08-06 22:38 | disposition home or self-care (01) ==
PROVIDERS: Emergency Provider Emergency Medicine; PCP Internal Medicine; Visit Provider Emergency Medicine
DX: B34.9 Viral infection, unspecified (principal); R11.2 Nausea with vomiting, unspecified; F17.210 Nicotine dependence, cigarettes, uncomplicated; R19.7 Diarrhea, unspecified; Z20.822 Contact with and (suspected) exposure to COVID-19
CPT/HCPCS: 87428; 99283

== ENCOUNTER 2022-08-07 21:00 | Emergency (ER) | payer MEDICAID, SELFPAY ==
[2022-08-07 21:01] VITALS: BP 129/91; PULSE 80; RESP 16; TEMP 37.6; O2SAT 94; BMI 24.5
--- NOTE | 2022-08-07 21:15 | CT_ITS ---
EXAM: CT ABDOMEN AND PELVIS WITH INTRAVENOUS CONTRAST CLINICAL INDICATION: n/v, RLQ pain TECHNIQUE: Helically acquired images were obtained of the abdomen and pelvis with intravenous contrast. CTDIvol = ( 13.91 ) mGy, DLP = ( 750.45 ) mGycm This CT exam was performed using one or more of the following dose reduction techniques: automated exposure control, adjustment of the mA and/or kV according to patient size, and/or use of iterative reconstruction technique. This report was created using [place] [employer] report generation technology. CONTRAST: IV 100mL Isovue-370 COMPARISON: None. FINDINGS: LOWER THORAX: Calcified granulomas of the left lower lobe. No cardiomegaly. No significant pericardial effusion. ABDOMEN: LIVER: Unremarkable. Homogeneous. No focal mass. GALLBLADDER AND BILE DUCTS: Unremarkable. No calcified gallstones. No gallbladder distention or wall edema. No intra- or extrahepatic biliary ductal dilation. PANCREAS: Unremarkable. No focal cystic or solid mass. SPLEEN: Small calcified granulomas of the spleen. ADRENALS: Unremarkable. No nodules. KIDNEYS AND URETERS: Unremarkable. Normal renal size and position. No hydronephrosis. STOMACH AND BOWEL: Circumferential thickening of the wall of the transverse colon, hepatic flexure, and right colon. No bowel obstruction. No diverticulitis. PELVIS: APPENDIX: No appendicitis. BLADDER: Decompressed appearance of the bladder. REPRODUCTIVE: Unremarkable as visualized. No mass. ABDOMEN and PELVIS: INTRAPERITONEAL SPACE: Unremarkable. No free air or free fluid. BONES/JOINTS: Unremarkable. No suspicious lytic or sclerotic lesions of bone. SOFT TISSUES: Unremarkable. No discrete abdominal or pelvic wall hernia. VASCULATURE: Unremarkable. Abdominal aorta is non-dilated. LYMPH NODES: Unremarkable. No enlarged lymph nodes. CT/Abdomen/Pelvis W IV Cont ONLY IMPRESSION: Colitis involving the right/transverse colon is suspected to be of infectious or inflammatory etiology without complication. Electronically Signed: Ben Garcia MD at 22:12 EST ,
--- NOTE | 2022-08-07 21:15 | ED.VIS.GI ---
HPI HPI - GI History of Present Illness Chief Complaint: Nausea/Vomiting Informant: patient and EMS Abdominal Pain/Flank Pain Onset: Today Context: Gradual Onset Timing: Continuous Quality: Aching Location: RLQ (And upper abdomen) Current Severity: Moderate Maximum Severity: Moderate Worsened by: - (Vomiting) Relieved by: Nothing Nausea/Vomiting/Emesis GI Symptom: Positive for Nausea and Vomiting Onset: Days (4-5) Quality: Positive for Nonbilious Severity: Severe Diarrhea/Melena/Hematochezia GI Symptom: Positive for Diarrhea; Negative for Melena or Hematochezia Onset: Days (4-5) Stool Quality: Positive for Loose Severity: Mild Associated Symptoms Associated Symptoms: Negative for Dysuria, Frequency, Hematuria or Urgency Narrative Narrative: Healthy 42-year-old male seen here yesterday for similar symptoms, vomiting and diarrhea for 4-5 days, he was prescribed Zofran and it has not been helping at home although it was here in the ER yesterday. He is also developed pain in his abdomen that he did not have initially. No prior history of abdominal surgeries. Still having low-grade fevers but they are subjective he does not have a thermometer. [facility] Medical History Acid reflux Bone fracture Depression with anxiety Headache, migraine History of back problems Home Medications escitalopram oxalate 10 mg tablet 10 mg PO DAILY #90 tabs 05/20/22 [Rx Last Taken 07/31/22] ondansetron 4 mg disintegrating tablet 4 mg PO Q8H PRN PRN Nausea #10 tabs 08/06/22 [Rx Last Taken Unknown] dicyclomine 10 mg capsule 20 mg PO Q6H PRN PRN abdominal discomfort #20 CAPSULES 08/07/22 [Rx Last Taken Unknown] promethazine 25 mg tablet 25 mg PO Q6H PRN PRN Nausea #16 TABLETS 08/07/22 [Rx Last Taken Unknown] Allergy/AdvReac Type Severity Reaction Status Date / Time bee venom protein (honey bee) Allergy Anaphylaxis Verified 08/06/22 18:26 Family History Aunt Breast cancer Father Alcoholism Mother Arthritis Surgical History History of tonsillectomy and adenoidectomy history ORIF jaw Social History Smoking Status: Current every day smoker tobacco type: cigarettes Tobacco: How many years used: 24 alcohol intake: current alcohol intake frequency: holidays/special occasions only substance use type: does not use what type of physical activity do you participate in: walking ROS ROS ED Constitutional Constitutional ED: Reports fever(s), malaise and subjective; Denies chills Eyes Eyes: Denies change in vision or diplopia ENT ENT ED: Denies rhinorrhea or sore throat Cardiovascular Cardiovascular: Denies chest pain or palpitations Respiratory/Chest Respiratory/Chest: Denies cough or dyspnea Gastrointestinal Gastrointestinal: Reports abdominal pain, diarrhea, nausea and vomiting; Denies melena Genitourinary Genitourinary ED: Denies dysuria or hematuria Musculoskeletal Musculoskeletal: Denies back pain or neck pain Integumentary Denies abscess or rash Neurologic Neurologic: Reports headache(s); Denies paresthesias or weakness Psychiatric Psychiatric: Denies anxiety or suicidal thoughts EXAM Physical Exam Const Vital Signs: 08/07/22 21:01 Temperature 99.6 F H Temperature Source Temporal Pulse Rate 80 Respiratory Rate 16 Blood Pressure 129/91 H Blood Pressure Mean 103 Pulse Ox 94 Oxygen Delivery Method Room Air Positive well nourished and well developed General Appearance ED: well developed and NAD HEENT Reports moist mucous membranes normocephalic and atraumatic Eyes PERRL and EOMs intact bilaterally Neck full ROM and supple Resp normal respiratory effort and clear to auscultation bilaterally Cardio regular rate, regular rhythm and no murmurs Rate: Negative for tachycardic GI non-distended GI Narrative: Patient has tenderness at McBurney's point, with some mild involuntary guarding. No rebound. Other than mildly tender in the epigastrium the rest of the exam is benign. Negative Rovsing, obturator, psoas signs. Auscultation: normoactive bowel sounds Palpation: soft Back/Spine no CVA tenderness General Back: other FROM Extremity normal to inspection General Extremety ED: Negative for edema, pulses abnormal or tenderness General Extremity: Negative for edema or pulses abnormal Neuro oriented x3, CN's II-XII intact bilaterally and no sensory deficits noted Sensorium / Orientation: awake and alert Motor Exam: strength 5/5 throughout Psych mental status grossly normal and thought process normal Skin no rashes or lesions noted and no wounds MDM MDM MDM Narrative Medical decision making narrative: This is an atypical presentation for appendicitis, but it is still in the differential given where the patient is tender. I suspect this may be a mimic such as mesenteric adenitis, and/or viral gastroenteritis. Basic labs were obtained and the patient was treated with IV fluids and Zofran to begin with, he was amenable to the plan. He does have a nonspecific leukocytosis at 13.5, no bandemia. CT of the abdomen/pelvis with IV contrast was obtained in order to rule out acute appendicitis. My interpretation of the CT agrees with that of the radiologist. Appendix is seen and is normal. It does show some inflammation around the transverse and right colon that is nonspecific, he states that his family tested positive for influenza recently, he does not have much in the way of respiratory symptoms may be a little congestion nothing lower airway that I am concerned about, and he is doing much better after IV fluids, IV Zofran, and Toradol here. It is possible that this colitis will resolve with the rest of his symptoms, if his pain and vomiting do not resolve he should follow-up with GI, but I do not think there is any indication for antibiotics here at this time, as viral etiology is much more likely. He will be prescribed dicyclomine in addition to Phenergan to use in addition to the Zofran if it is not working as well at home, he is comfortable with that plan supportive care advised for now. Lab Data Attestation: I reviewed the patient's lab results. Labs: Laboratory Results - last 24 hr 08/07/22 08/07/22 21:20 21:20 WBC 13.5 H RBC 5.04 Hgb 15.8 Hct 46.9 MCV 93.1 MCH 31.3 MCHC 33.7 RDW Std Deviation 43.7 RDW Coeff of Alen 12.6 Plt Count 293 MPV 9.9 Immature Gran % (Auto) 0.400 Neut % (Auto) 78.5 H Lymph % (Auto) 13.5 L [place] % (Auto) 6.8 Eos % (Auto) 0.4 Baso % (Auto) 0.4 Absolute Neuts (auto) 10.6 H Absolute Lymphs (auto) 1.82 Nucleated RBC % 0 Sodium 141 Potassium 3.5 Chloride 108 H Carbon Dioxide 24.0 Anion Gap 9 BUN 9 Creatinine 0.77 Estim Creat Clear Calc 127.72 Est GFR (MDRD) Af Amer 141 Est GFR (MDRD) Non-Af 117 BUN/Creatinine Ratio 11.6 Glucose 118 H Calcium 9.5 Radiography Diagnostic Testing: Clinical Impression(s) from Imaging Studies Abdomen/Pelvis CT 08/07/22 21:15 IMPRESSION: Colitis involving the right/transverse colon is suspected to be of infectious or inflammatory etiology without complication. Electronically Signed: Ben Garcia MD at 22:12 EST , Discharge Plan Triage Chief Complaint: Nausea/Vomiting ED Provider: Edwin Pérez Dx/Rx/DC Orders Clinical Impression: Colitis, Gastroenteritis Instructions: Viral Gastroenteritis, ED Understanding Colitis Prescriptions: New dicyclomine 10 mg capsule 20 mg PO Q6H PRN PRN (Reason: abdominal discomfort) Qty: 20 0RF promethazine [promethazine] 25 mg tablet 25 mg PO Q6H PRN PRN (Reason: Nausea) Qty: 16 0RF No Action ondansetron [ondansetron] 4 mg tablet,disintegrating 4 mg PO Q8H PRN PRN (Reason: Nausea) Qty: 10 0RF escitalopram oxalate 10 mg tablet 10 mg PO DAILY Qty: 90 3RF Primary Care Provider: Pita Knight Referrals: Pita Knight MD [Primary Care Provider] - 3-5 Days if not improving Arie Monsivais DO [Med Staff - Active Staff] - 1 Week if not improving Disposition Disposition: Home, Self Care
[2022-08-07] MEDS: Ondansetron 4 MG/2 ML Vial IV (21:25)
[2022-08-07] MEDS: 0.9% Normal Saline 1,000 ML 1000 ML IV (21:25)
[2022-08-07 21:34] LABS: Absolute Lymphocyte Count 1.82 X10^3/uL (0.83-4.51); Absolute Neutrophil Count 10.6 X10^3/uL (2.0-7.7); Basophil# 0.05 X10^3/uL; Basophil% 0.4 % (0-1); Eosinophil# 0.06 X10^3/uL; Eosinophils% 0.4 % (0-5); Hematocrit 46.9 % (40-54); Hemoglobin 15.8 g/dL (13.0-16.5); Lymphocyte # 1.82 X10^3/ul (0.83-4.51); Lymphocyte % 13.5 % (19-41); Mean Corp Hgb Conc 33.7 g/dL (32-36); Mean Corpuscular Hgb 31.3 pg (27.0-32.0); Mean Corpuscular Volume 93.1 fL (80-94); Mean Platelet Vol. 9.9 fl (6.2-12.0); Monocyte# 0.91 X10^3/uL; Monocyte% 6.8 % (0-10); NRBC Flagged by Analyzer 0 % (0-5); Neutrophil # 10.58 X10^3/uL (2.7-7.7); Neutrophil % 78.5 % (47-70); Platelet Count 293 K/mm3 (150-450); RBC Distribution Width CV 12.6 % (11.6-14.6); RBC Distribution Width SD 43.7 fl (35.1-43.9); Red Blood Count 5.04 M/mm3 (4.6-6.2); White Blood Count 13.5 K/mm3 (4.4-11.0)
[2022-08-07] MEDS: Ketorolac 30 MG/ML Syringe IV (22:05)
[2022-08-07] MEDS: Mag Hydrox/Al Hydrox/Simeth 30 ML UDC PO (22:06)
[2022-08-07 22:11] LABS: Anion Gap 9 (5-15); BUN 9 mg/dL (7-18); BUN/Creat Ratio 11.6 RATIO (10-20); Calcium,Total 9.5 mg/dL (8.5-10.1); Chloride 108 mmol/L (98-107); Creatinine, Serum 0.77 mg/dL (0.70-1.30); EST Glomerular Filtration Rate 117 mL/min (>60); Est Glom Filt Rate - Afr Amer 141 mL/min (>60); Estimated Creatinine Clearance 127.72 ml/min; Glucose 118 mg/dL (74-106); Potassium 3.5 mmol/L (3.5-5.1); Sodium Level 141 mmol/L (136-145)
== END 2022-08-07 23:10 | disposition home or self-care (01) ==
PROVIDERS: Emergency Provider Emergency Medicine; PCP Internal Medicine; Visit Provider Emergency Medicine
DX: K52.9 Noninfective gastroenteritis and colitis, unspecified (principal); F17.210 Nicotine dependence, cigarettes, uncomplicated; R11.2 Nausea with vomiting, unspecified; R19.7 Diarrhea, unspecified
CPT/HCPCS: 74177; 80048; 85025; 96361; 96374; 96375; 99284; J7030; Q9967; A4216; J2405